=== PATIENT | female | born 2000 | race Caucasian/White ===

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

== ENCOUNTER 2018-01-01 18:49 | Emergency (ER) | payer OTHER ==
[~2018-01-01] VITALS: Ht 165.1 cm; Wt 78.5 kg
[2018-01-01 18:55] VITALS: BP 127/78
--- NOTE | 2018-01-01 18:59 | NUR ---
PT AMBULATES BACK TO THE LOBBY
[2018-01-01 20:24] VITALS: BP 127/78
--- NOTE | 2018-01-01 20:24 | NUR ---
PT AMBULATED TO ER CHAIR D
--- NOTE | 2018-01-01 20:24 | NUR ---
PATIENT PRESENTS TO ED WITH C/O RASH TO BILATERAL ARMS THAT STARTED TONIGHT AFTER HER SHOWER PT DENIES N/V/D; AAOX4 WITH EVEN AND STEADY GAIT; LUNGS CLEAR BL; HR EVEN AND REGULAR; PT DENIES ANY FEVER, CP, SOB, OR COUGH AT THIS TIME; PATIENT STATES PAIN OF 8/10 AT THIS TIME; VSS; PATIENT POSITIONED FOR COMFORT; HOB ELEVATED; BEDRAILS UP X2; BED DOWN. ER MD MADE AWARE OF PT STATUS.
--- NOTE | 2018-01-01 21:05 | NUR ---
Patient discharged with v/s stable. Written and verbal after care instructions given and explained. Patient alert, oriented and verbalized understanding of instructions. Ambulatory with steady gait. All questions addressed prior to discharge. ID band removed. Patient advised to follow up with PMD. Rx of PREDNISONE, BENADRYL AND KEFLEX given. Patient educated on indication of medication including possible reaction and side effects. Opportunity to ask questions provided and answered.
--- NOTE | 2018-01-01 21:05 | NUR ---
PT DISCHARGED BY DR RAMIREZ
== END 2018-01-01 21:05 | disposition home or self-care (01) ==
LOC: MED 18:49
DX: L25.0 Unspecified contact dermatitis due to cosmetics (principal)
CPT/HCPCS: 99283

== ENCOUNTER 2022-09-26 00:44 | Emergency (ER) | payer MEDICAID, OTHER ==
[~2022-09-26] VITALS: Ht 162.6 cm; Wt 90.7 kg
[2022-09-26 00:48] VITALS: BP 134/68
--- NOTE | 2022-09-26 00:52 | NUR ---
TO BED 8 FOLLOWING TRIAGE
[2022-09-26] MEDS ORDERED: CIPR7.5S OT (01:06)
[2022-09-26] MEDS ORDERED: CIPROFLOXACIN 0.3% OP 2.5 ML BTL OP STA (01:07)
--- NOTE | 2022-09-26 01:13 | NUR ---
Patient discharged with v/s stable. Written and verbal after care instructions given and explained. Patient verbalized understanding. Ambulatory with steady gait. All questions addressed prior to discharge. Advised to follow up with PMD.
--- NOTE | 2022-09-26 01:28 | NUR ---
PASTOR MELENDREZ AWARE OF MED NOT GIVEN BEFORE PT DC.
== END 2022-09-26 01:30 | disposition home or self-care (01) ==
LOC: MED 00:44
DX: H60.92 Unspecified otitis externa, left ear (principal)
CPT/HCPCS: 99283